=== PATIENT | female | born 1960 | race Caucasian/White ===

== ENCOUNTER 2017-06-02 17:48 | Inpatient (IN) | payer OTHER ==
[2017-06-02] MEDS ORDERED: ONDANSETRON 4 MG INJ ×2 (18:47→20:43)
[2017-06-02] MEDS: METHYLPREDNISOLONE 125 MG INJ IV (18:58)
[2017-06-02] MEDS: SOD CHLORIDE 0.9% 1,000 ML IV ×2 (19:01→22:24)
[2017-06-02] MEDS: ALBUTEROL 0.5% (NEB) 2.5 MG/0.5 ML AMP INH ×2 (19:02→21:50)
[2017-06-02 19:12] LABS: ADD MAN DIFF? NO
[2017-06-02 19:13] LABS: ABNORMAL IP MESSAGE 1; BASOPHIL # 0.1 10^3/ul (0.0-0.1); BASOPHILS % 0.8 % (0.0-2.0); EOSINOPHILS # 0.1 10^3/ul (0.0-0.5); EOSINOPHILS % 1.3 % (0.0-7.0); HEMATOCRIT 39.4 % (37.0-47.0); HEMOGLOBIN 12.1 g/dl (12.0-16.0); LYMPHOCYTES # 0.4 10^3/ul (0.8-2.9); LYMPHOCYTES % 6.1 % (15.0-51.0); MEAN CORPUSCULAR HEMOGLOBIN 24.6 pg (29.0-33.0); MEAN CORPUSCULAR HGB CONC 30.7 g/dl (32.0-37.0); MEAN CORPUSCULAR VOLUME 80.1 fl (82.0-101.0); MEAN PLATELET VOLUME 10.7 fl (7.4-10.4); MONOCYTE # 0.4 10^3/ul (0.3-0.9); MONOCYTES % 6.6 % (0.0-11.0); NEUTROPHIL # 5.4 10^3/ul (1.6-7.5); NEUTROPHILS % 84.7 % (39.0-77.0); PLATELET COUNT 191 10^3/UL (140-415); RED BLOOD COUNT 4.92 10^6/ul (4.20-5.40); RED CELL DISTRIBUTION WIDTH 13.8 % (11.5-14.5)
[2017-06-02 19:13] LABS: WHITE BLOOD COUNT 6.4 10^3/ul (4.8-10.8)
[2017-06-02 19:23] LABS: POSITIVE DIFF @See below
[2017-06-02 19:30] LABS: ANION GAP 13 (8-16); BLOOD UREA NITROGEN 15 mg/dl (7-20); CARBON DIOXIDE 29 mmol/L (21-31); CHLORIDE 103 mmol/L (97-110); CREATININE 0.72 mg/dl (0.44-1.00); GLUCOSE 107 mg/dl (70-220); POTASSIUM 3.4 mmol/L (3.5-5.1); SODIUM 142 mmol/L (135-144)
[2017-06-02 19:43] LABS: TROPONIN-I < 0.012 ng/ml (0.00-0.12)
[2017-06-02] MEDS: ONDANSETRON 4 MG INJ IV (20:44)
[2017-06-02] MEDS ORDERED: NACL 0.9% 3 ML SYG IV (22:00)
[2017-06-02] MEDS ORDERED: BISACODYL (EC) 5 MG TAB PO (22:00)
[2017-06-02] MEDS ORDERED: DOCUSATE SODIUM 100 MG CAP PO (22:00)
[2017-06-02] MEDS ORDERED: ONDANSETRON 4 MG INJ IV (22:00)
[2017-06-02] MEDS ORDERED: LORAZEPAM 0.5 MG TAB PO (22:00)
[2017-06-02] MEDS ORDERED: ONDANSETRON 4 MG TAB PO (22:00)
[2017-06-02] MEDS ORDERED: ALBUTEROL HFA 8 GM INHALER INH (23:00)
[2017-06-02] MEDS: ACETAMINOPHEN 325 MG TAB PO (23:44)
[2017-06-02] MEDS: POTASSIUM CHLORIDE (SR) 20 MEQ TAB PO (23:44)
[2017-06-03] MEDS ORDERED: ALBUTEROL 0.083% (NEB) 2.5 MG/3 ML AMP HHN (01:00)
[2017-06-03] MEDS: LEVALBUTEROL (NEB) 0.63 MG/3 ML AMP HHN ×6 (02:00→21:27)
[2017-06-03] MEDS: ACETAMINOPHEN 325 MG TAB PO ×2 (05:21→12:58)
[2017-06-03] MEDS: GUAIFENESIN/DM (SR) TAB PO ×2 (05:51→21:56)
[2017-06-03] MEDS ORDERED: GUAIFENESIN/DM (SR) TAB PO (06:00)
[2017-06-03 08:33] LABS: ADD MAN DIFF? NO
[2017-06-03] MEDS: LEVOFLOXACIN 750MG/D5W (PMX) 150 ML IVPB (08:38)
[2017-06-03] MEDS: LOSARTAN 50 MG TAB PO (08:39)
[2017-06-03] MEDS: HYDROCHLOROTHIAZIDE 12.5 MG CAP PO (08:39)
[2017-06-03] MEDS: predniSONE 20 MG TAB PO (08:39)
[2017-06-03] MEDS: ASPIRIN (EC) 81 MG TAB PO (08:39)
[2017-06-03 08:51] LABS: ABNORMAL IP MESSAGE 1; BASOPHILS % 0.6 % (0.0-2.0); HEMATOCRIT 34.3 % (37.0-47.0); HEMOGLOBIN 10.6 g/dl (12.0-16.0); LYMPHOCYTES # 0.2 10^3/ul (0.8-2.9); LYMPHOCYTES % 3.5 % (15.0-51.0); MEAN CORPUSCULAR HEMOGLOBIN 25.1 pg (29.0-33.0); MEAN CORPUSCULAR HGB CONC 30.9 g/dl (32.0-37.0); MEAN CORPUSCULAR VOLUME 81.1 fl (82.0-101.0); MEAN PLATELET VOLUME 11.3 fl (7.4-10.4); MONOCYTE # 0.2 10^3/ul (0.3-0.9); MONOCYTES % 3.9 % (0.0-11.0); NEUTROPHILS % 91.4 % (39.0-77.0); PLATELET COUNT 171 10^3/UL (140-415); RED BLOOD COUNT 4.23 10^6/ul (4.20-5.40); RED CELL DISTRIBUTION WIDTH 14.2 % (11.5-14.5)
[2017-06-03 08:51] LABS: WHITE BLOOD COUNT 5.4 10^3/ul (4.8-10.8)
[2017-06-03 09:06] LABS: POSITIVE DIFF @See below
[2017-06-03 10:12] LABS: ADD UMIC YES; UR ASCORBIC ACID 40 mg/dL (NEGATIVE); UR BILIRUBIN (Dip) NEGATIVE (NEGATIVE); UR BLOOD (Dip) 1+ mg/dL (NEGATIVE); UR CLARITY CLEAR (CLEAR); UR COLOR YELLOW (YELLOW); UR GLUCOSE (Dip) NEGATIVE (NEGATIVE); UR KETONES (Dip) NEGATIVE (NEGATIVE); UR LEUKOCYTE ESTERASE (Dip) NEGATIVE Leu/ul (NEGATIVE); UR MUCUS FEW /HPF (NONE SEEN); UR NITRITE (Dip) NEGATIVE (NEGATIVE); UR RBC 1 /HPF (0-5); UR SQUAMOUS EPITHELIAL CELL FEW /HPF (FEW); UR TOTAL PROTEIN (Dip) 1+ mg/dl (NEGATIVE); UR UROBILINOGEN (Dip) NEGATIVE (NEGATIVE); UR WBC 2 /HPF (0-5)
[2017-06-03 10:34] LABS: ALANINE AMINOTRANSFERASE 32 IU/L (13-69); ALBUMIN 3.3 g/dl (3.3-4.9); ALBUMIN/GLOBULIN RATIO 1.03; ALKALINE PHOSPHATASE 73 IU/L (42-121); ANION GAP 9 (8-16); ASPARTATE AMINO TRANSFERASE 28 IU/L (15-46); BILIRUBIN,INDIRECT 0.1 mg/dl (0-1.1); BILIRUBIN,TOTAL 0.1 mg/dl (0.2-1.3); BLOOD UREA NITROGEN 12 mg/dl (7-20); CALCIUM 8.7 mg/dl (8.4-10.2); CARBON DIOXIDE 28 mmol/L (21-31); CHLORIDE 107 mmol/L (97-110); CHOL/HDL RATIO 3.5 RATIO; CHOLESTEROL 164 mg/dl (100-200); CREATININE 0.57 mg/dl (0.44-1.00); GLUCOSE 105 mg/dl (70-220); HDL CHOLESTEROL 46 mg/dl (37-92); LDL CHOLESTEROL,CALCULATED 111 mg/dl; MAGNESIUM 1.9 mg/dl (1.7-2.5); POTASSIUM 4.2 mmol/L (3.5-5.1); SODIUM 140 mmol/L (135-144); TOTAL PROTEIN 6.5 g/dl (6.1-8.1); TRIGLYCERIDES 33 mg/dl (0-149)
[2017-06-03 10:45] LABS: THYROID STIMULATING HORMONE 0.057 MIU/L (0.465-4.680)
[2017-06-03] MEDS: GUAIFENESIN/DM 5ML CUP PO (11:03)
[2017-06-03] MEDS: PANTOPRAZOLE (EC) 40 MG TAB PO (11:03)
[2017-06-03] MEDS: DOCUSATE SODIUM 100 MG CAP PO ×2 (13:30→21:56)
[2017-06-03] MEDS ORDERED: ONDANSETRON 4 MG INJ IV (13:30)
[2017-06-03 14:29] LABS: HEMOGLOBIN A1C 5.6 % (0-5.9)
[2017-06-04] MEDS: LEVALBUTEROL (NEB) 0.63 MG/3 ML AMP HHN ×6 (01:57→20:11)
[2017-06-04] MEDS: LEVOFLOXACIN 750MG/D5W (PMX) 150 ML IVPB (06:10)
[2017-06-04] MEDS: PANTOPRAZOLE (EC) 40 MG TAB PO (06:10)
[2017-06-04] MEDS: ASPIRIN (EC) 81 MG TAB PO (07:48)
[2017-06-04] MEDS: LOSARTAN 50 MG TAB PO (07:49)
[2017-06-04] MEDS: GUAIFENESIN/DM 5ML CUP PO ×2 (07:49→17:39)
[2017-06-04] MEDS: HYDROCHLOROTHIAZIDE 12.5 MG CAP PO (07:49)
[2017-06-04] MEDS: predniSONE 20 MG TAB PO (07:49)
[2017-06-04] MEDS: GUAIFENESIN/DM (SR) TAB PO ×2 (07:50→20:46)
[2017-06-04] MEDS: DOCUSATE SODIUM 100 MG CAP PO ×2 (07:51→20:45)
[2017-06-04 08:46] LABS: ADD MAN DIFF? NO
[2017-06-04 08:51] LABS: BASOPHILS % 0.2 % (0.0-2.0); HEMATOCRIT 33.2 % (37.0-47.0); HEMOGLOBIN 10.3 g/dl (12.0-16.0); LYMPHOCYTES # 0.8 10^3/ul (0.8-2.9); LYMPHOCYTES % 15.1 % (15.0-51.0); MEAN CORPUSCULAR HEMOGLOBIN 25.2 pg (29.0-33.0); MEAN CORPUSCULAR VOLUME 81.2 fl (82.0-101.0); MEAN PLATELET VOLUME 11.2 fl (7.4-10.4); MONOCYTE # 0.5 10^3/ul (0.3-0.9); MONOCYTES % 9.3 % (0.0-11.0); NEUTROPHIL # 3.8 10^3/ul (1.6-7.5); NEUTROPHILS % 75.2 % (39.0-77.0); PLATELET COUNT 147 10^3/UL (140-415); RED BLOOD COUNT 4.09 10^6/ul (4.20-5.40); RED CELL DISTRIBUTION WIDTH 14.2 % (11.5-14.5)
[2017-06-04] MEDS: INFLUENZA VIRUS VACCINE 0.5 ML (DISPENSING) IM* (09:00)
[2017-06-04 09:41] LABS: ANION GAP 9 (8-16); BLOOD UREA NITROGEN 12 mg/dl (7-20); CALCIUM 8.4 mg/dl (8.4-10.2); CARBON DIOXIDE 32 mmol/L (21-31); CHLORIDE 103 mmol/L (97-110); CREATININE 0.65 mg/dl (0.44-1.00); GLUCOSE 94 mg/dl (70-220); MAGNESIUM 1.8 mg/dl (1.7-2.5); POTASSIUM 3.4 mmol/L (3.5-5.1); SODIUM 141 mmol/L (135-144)
[2017-06-04] MEDS: POTASSIUM CHLORIDE (SR) 20 MEQ TAB PO ×2 (12:25→15:39)
[2017-06-04] MEDS: ACETAMINOPHEN 325 MG TAB PO (15:39)
[2017-06-05] MEDS: GUAIFENESIN/DM 5ML CUP PO ×4 (00:01→17:51)
[2017-06-05] MEDS: LEVALBUTEROL (NEB) 0.63 MG/3 ML AMP HHN ×5 (00:30→16:41)
[2017-06-05] MEDS ORDERED: hydrALAzine 20 MG INJ IV (04:00)
[2017-06-05] MEDS: PANTOPRAZOLE (EC) 40 MG TAB PO (05:21)
[2017-06-05] MEDS: LEVOFLOXACIN 750MG/D5W (PMX) 150 ML IVPB (05:21)
[2017-06-05] MEDS: predniSONE 20 MG TAB PO (08:42)
[2017-06-05] MEDS: ASPIRIN (EC) 81 MG TAB PO (08:42)
[2017-06-05] MEDS: GUAIFENESIN/DM (SR) TAB PO (08:42)
[2017-06-05] MEDS: DOCUSATE SODIUM 100 MG CAP PO ×2 (08:42→14:57)
[2017-06-05] MEDS: LOSARTAN 50 MG TAB PO (08:43)
[2017-06-05] MEDS: HYDROCHLOROTHIAZIDE 12.5 MG CAP PO (08:43)
[2017-06-05 09:00] LABS: ADD MAN DIFF? NO
[2017-06-05 09:18] LABS: WHITE BLOOD COUNT 4.2 10^3/ul (4.8-10.8)
[2017-06-05 09:18] LABS: BASOPHILS % 0.2 % (0.0-2.0); HEMATOCRIT 34.9 % (37.0-47.0); LYMPHOCYTES % 23.9 % (15.0-51.0); MEAN CORPUSCULAR HEMOGLOBIN 25.6 pg (29.0-33.0); MEAN CORPUSCULAR HGB CONC 31.5 g/dl (32.0-37.0); MEAN CORPUSCULAR VOLUME 81.4 fl (82.0-101.0); MEAN PLATELET VOLUME 11.4 fl (7.4-10.4); MONOCYTE # 0.5 10^3/ul (0.3-0.9); MONOCYTES % 11.2 % (0.0-11.0); NEUTROPHIL # 2.7 10^3/ul (1.6-7.5); NEUTROPHILS % 64.5 % (39.0-77.0); PLATELET COUNT 165 10^3/UL (140-415); RED BLOOD COUNT 4.29 10^6/ul (4.20-5.40); RED CELL DISTRIBUTION WIDTH 14.3 % (11.5-14.5)
[2017-06-05 09:40] LABS: ANION GAP 8 (8-16); BLOOD UREA NITROGEN 11 mg/dl (7-20); CALCIUM 8.6 mg/dl (8.4-10.2); CARBON DIOXIDE 35 mmol/L (21-31); CHLORIDE 101 mmol/L (97-110); GLUCOSE 83 mg/dl (70-220); POTASSIUM 3.5 mmol/L (3.5-5.1); SODIUM 140 mmol/L (135-144)
[2017-06-05] MEDS: FERROUS SULFATE (EC) 325 MG TAB PO (14:57)
[2017-06-05] MEDS: ASCORBIC ACID 500 MG TAB PO (14:57)
== END 2017-06-05 18:20 | disposition home or self-care (01) | DRG 872 ==
LOC: TEL 21:50 → E/R 17:48
DX: A41.9 Sepsis, unspecified organism (principal); J45.901 Unspecified asthma with (acute) exacerbation; I10 Essential (primary) hypertension; J01.90 Acute sinusitis, unspecified; J40 Bronchitis, not specified as acute or chronic; R73.03 Prediabetes; R09.02 Hypoxemia; E87.6 Hypokalemia
CPT/HCPCS: 71010; 80048; 80053; 80061; 81001; 83036; 83735; 84443; 84484; 85025; 87040; 87070; 87275; 87276; 87279; 87280; 87400; 90686; 94640; 94644; 94645; 96374; 96375; 99285-25; G0378

== ENCOUNTER 2017-10-23 11:36 | Emergency (ER) | payer OTHER ==
[2017-10-23] MEDS: IPRATROPIUM (NEB) 0.5 MG/2.5 ML AMP INH (12:10)
[2017-10-23] MEDS: ALBUTEROL 0.5% (NEB) 2.5 MG/0.5 ML AMP INH (12:10)
[2017-10-23] MEDS: DEXAMETHASONE 10 MG/ML 1 ML INJ IM (12:11)
== END 2017-10-23 13:30 | disposition home or self-care (01) ==
LOC: FTE 11:36
DX: J45.901 Unspecified asthma with (acute) exacerbation (principal); I10 Essential (primary) hypertension; J06.9 Acute upper respiratory infection, unspecified; Z79.82 Long term (current) use of aspirin
CPT/HCPCS: 71045; 94644; 96372; 99284-25